=== PATIENT | female | born 2000 | race Caucasian/White ===

== ENCOUNTER → 2023-01-08 12:44 | Outpatient (BNVA) | payer OTHER, SELFPAY | PROVIDERS: Visit Provider Internal Medicine Rheumatology | DX: M19.90 Unspecified osteoarthritis, unspecified site (principal); Z79.899 Other long term (current) drug therapy; M25.50 Pain in unspecified joint; R76.8 Other specified abnormal immunological findings in serum; Z98.890 Other specified postprocedural states | CPT/HCPCS: 36415; 80076; 82565; 85025; 85651; 86140; 86200 ==